=== PATIENT | male | born 1970 | race Caucasian/White ===

== ENCOUNTER 2020-06-07 08:07 | Emergency (ER) | payer MEDICARE, MEDICAID ==
[2020-06-07] MEDS ORDERED: Fluorescein 1 MG Ophth Strip EYELF ONE (08:19)
[2020-06-07] MEDS ORDERED: Proparacaine 0.5% Ophth Soln 15 ML Bottle EYELF ONE (08:19)
[2020-06-07] MEDS ORDERED: Tetracaine HCl/PF 0.5% 4 ML Bottle EYELF ONE (08:22)
[2020-06-07 08:36] VITALS: BP 134/92; PULSE 110
[2020-06-07] MEDS ORDERED: Take Home: Diclofenac Sodium 0.1% Ophth Soln 5 ML, 1 Bottle Pack EYELF SCH (08:45)
[2020-06-07] MEDS ORDERED: Take Home: Gentamicin 0.3% Ophth Soln 5 ML, 1 Bottle Pack ONE (08:54)
[2020-06-07] MEDS ORDERED: Take Home: Gentamicin 0.3% Ophth Soln 5 ML, 1 Bottle Pack EYELF SCH (12:00)
--- NOTE | 2020-06-15 05:31 | EDM.PDOC ---
ED HPI GENERAL MEDICAL PROBLEM - General Chief Complaint: Eye Problems Stated Complaint: SOMETHING IN L EYE Time Seen by Provider: 06/07/20 08:29 Source of Information: Reports: Patient - History of Present Illness INITIAL COMMENTS - FREE TEXT/NARRATIVE: Pt. presents to ER with complaints of L eye pain. He states that he woke with the discomfort early this AM. He states that he has difficulty opening it up. Denies any acute vision loss or change. Pt. states that he has not been grinding metal or doing other activities that would increase his risk of eye injury/foreign body. Location: Reports: Face Quality: Reports: Burning Severity: Moderate Left Eye Pain Score (Numeric/FACES): 5 - Related Data Allergies Allergy/AdvReac Type Severity Reaction Status Date / Time No Known Allergies Allergy Verified 06/07/20 09:35 Home Meds: Home Meds Aspirin [Halfprin] 81 mg PO DAILY 06/07/20 [History] Baclofen 20 mg PO TID 06/07/20 [History] Cholecalciferol (Vitamin D3) [Vitamin D3] 6,000 unit PO DAILY 06/07/20 [History] DULoxetine [Cymbalta] 60 mg PO BEDTIME 06/07/20 [History] Fluticasone Propionate [Flonase] 2 spray NS DAILY 06/07/20 [History] Gabapentin [Neurontin] 800 mg PO TID 06/07/20 [History] HYDROcodone/Ibuprofen [Vicoprofen] 1 tab PO TID 06/07/20 [History] Milnacipran HCl [Savella] 50 mg PO BID 06/07/20 [History] Naproxen 500 mg PO BID 06/07/20 [History] Nortriptyline 10 mg PO BEDTIME 06/07/20 [History] Omeprazole Magnesium [Prilosec Otc] 20 mg PO DAILY PRN 06/07/20 [History] Sildenafil [Viagra] 50 - 100 mg PO ASDIRECTED PRN 06/07/20 [History] SitaGLIPtin [Januvia] 100 mg PO DAILY 06/07/20 [History] Triamterene/Hydrochlorothiazid [Dyazide 37.5-25 Capsule] 1 each PO DAILY 06/07/20 [History] atenoloL [Atenolol] 50 mg PO DAILY 06/07/20 [History] atorvaSTATin [Lipitor] 20 mg PO DAILY 06/07/20 [History] glipiZIDE [Glipizide Xl] 10 mg PO DAILY 06/07/20 [History] lisinopriL [Lisinopril] 20 mg PO BID 06/07/20 [History] metFORMIN HCl [Metformin HCl] 1 tab PO BID 06/07/20 [History] Past Medical History Cardiovascular History: Reports: Hypertension Respiratory History: Reports: Sleep Apnea Gastrointestinal History: Reports: GERD Genitourinary History: Reports: Other (See Below) Other Genitourinary History: Erectile dysfunction, nephrolithiasis Other Musculoskeletal History: disk disease Neurological History: Reports: Migraines Psychiatric History: Reports: Other (See Below) Other Psychiatric History: insomnia Endocrine/Metabolic History: Reports: Diabetes, Type II, Vitamin D Deficiency, Other (See Below) Other Endocrine/Metabolic History: hyperlipidemia - Past Surgical History Other Musculoskeletal Surgeries/Procedures:: back surgery Social & Family History - Family History Family Medical History: Noncontributory - Tobacco Use Tobacco Use Status *Q: Never Tobacco User Second Hand Smoke Exposure: No - Caffeine Use Caffeine Use: Reports: None - Recreational Drug Use Recreational Drug Use: No ED ROS GENERAL - Review of Systems Review Of Systems: See Below Constitutional: Reports: No Symptoms HEENT: Reports: Eye Pain ED EXAM, GENERAL - Physical Exam Exam: See Below Exam Limited By: No Limitations General Appearance: Alert, WD/WN, No Apparent Distress Eye Exam: Left Eye: Corneal Abrasion (found under flourescein exam in L eye at L lateral lower quadrant of eye. No foreign body noted to eye or underside of eyelid.), Bilateral Eye: EOMI, Normal Fundi, Normal Inspection, PERRL Course - Vital Signs Last Recorded V/S: Last Vital Signs Temp 36.2 C 06/07/20 08:29 Pulse 110 H 06/07/20 08:29 Resp 18 06/07/20 08:29 BP 134/92 H 06/07/20 08:29 Pulse Ox 99 06/07/20 08:29 - Orders/Labs/Meds Meds: Medications Discontinued Medications Generic Name Dose Route Start Last Admin Trade Name Freq PRN Reason Stop Dose Admin Diclofenac Sodium 1 packet 06/07/20 08:45 06/07/20 08:47 Take Home: Diclofenac 0.1% Ophth, 1 Bottle EYELF 1 packet ONETIME MICH Administration Fluorescein Sodium 1 mg 06/07/20 08:19 06/07/20 08:27 Ful-Alena EYELF 06/07/20 08:20 1 mg ONETIME ONE Administration Gentamicin Sulfate 1 packet 06/07/20 12:00 06/07/20 08:48 Take Home: Gentamicin 0.3% Ophth Soln, 1 Alina EYELF Not Given QID MICH Gentamicin Sulfate Confirm 06/07/20 08:54 06/07/20 08:49 Take Home: Gentamicin 0.3% Ophth Soln, 1 Alina Administered 06/07/20 08:55 Not Given Dose 1 packet .ROUTE .STK-MED ONE Proparacaine HCl 1 ml 06/07/20 08:19 06/07/20 08:28 Proparacaine 0.5% Ophth Soln EYELF 06/07/20 08:20 Not Given ONETIME ONE Tetracaine HCl 1 ml 06/07/20 08:22 06/07/20 08:27 Tetracaine 0.5% Steri-Unit Mary Jane EYELF 06/07/20 08:23 1 drop ONETIME ONE Administration Departure - Departure Time of Disposition: 09:30 Disposition: Home, Self-Care 01 Clinical Impression: Corneal abrasion - Discharge Information Instructions: Corneal Abrasion, [id number], Gentamicin eye drops, Diclofenac eye solution Referrals: Dulce Luis PA-C [Primary Care Provider] - Forms: ED Department Discharge Additional Instructions: Gentamycin drops 1 drop to left eye 4 times daily for 7 days Voltaren (diclofenac) drops 1 drop 3 times daily for pain Follow-up with [facility] tomorrow for slit lamp examination of the eye Return to ER if you have any acute vision loss or change. Rest eye as much as possible today. Minimize likelihood of further injury to the eye. Rest with the eye closed. Sepsis Event Note (ED) - Evaluation Sepsis Screening Result: No Definite Risk - Assessment/Plan Plan: Gentamycin drops 1 drop to left eye 4 times daily for 7 days Voltaren (diclofenac) drops 1 drop 3 times daily for pain Follow-up with [facility] tomorrow for slit lamp examination of the eye Return to ER if you have any acute vision loss or change. Rest eye as much as possible today. Minimize likelihood of further injury to the eye. Rest with the eye closed.
== END 2020-06-07 08:54 | disposition home or self-care (01) ==
LOC: VM.ED 08:07
DX: S05.02XA Injury of conjunctiva and corneal abrasion without foreign body, left eye, initial encounter (principal); I10 Essential (primary) hypertension; E78.5 Hyperlipidemia, unspecified; E11.9 Type 2 diabetes mellitus without complications; G43.909 Migraine, unspecified, not intractable, without status migrainosus; K21.9 Gastro-esophageal reflux disease without esophagitis; Z79.899 Other long term (current) drug therapy; Z79.84 Long term (current) use of oral hypoglycemic drugs; Z79.82 Long term (current) use of aspirin
CPT/HCPCS: 99283; A9270-GY

== ENCOUNTER 2020-08-20 17:04 | Inpatient (IN) | payer MEDICARE, SELFPAY ==
[2020-08-20] MEDS ORDERED: Glucagon,Human Recombinant 1 MG Vial IM PRN (17:48)
[2020-08-20] MEDS ORDERED: 50% Dextrose in Water 50 ML Syringe IV PRN (17:48)
--- NOTE | 2020-08-20 18:02 | PCM.HP.2 ---
H&P History of Present Illness - General Date of Service: 08/20/20 Admit Problem/Dx: Admission Diagnosis/Problem Admission Diagnosis/Problem Acute kidney injury Source of Information: Patient History Limitations: Reports: No Limitations - History of Present Illness Initial Comments - Free Text/Narative: Romie presented to the clinic today with lightheadedness and seeing stars. He has felt weak, thinking his blood pressure is low. He did have a fainting episode Springer tad. On that day we had decreased his Lisinopril dose from 40 mg per day to 30 mg per day. His lab studies on 07/30/20 did show a decline in kidney function with Creat 1.45, BUN 32, and GFR 52. I had instructed him to stop Naprosyn he had been given from Podiatry for foot pain and to repeat BMP in a w [place]. He did not see this message so medication was not stopped and lab not done. He denies black, bloody or tarry stools. He also has numbness over his inner wrists with zingers from his wrists to his fingers. His arms have been twitching. He has pain and numbness to his shoulders. Today lab returned with Creat 2.3, BUN 38, GFR 31, Hemoglobin 9.9, Hct 29.3, MCV 94, MCHC 33. - Related Data Allergies/Adverse Reactions: Allergies Allergy/AdvReac Type Severity Reaction Status Date / Time No Known Allergies Allergy Verified 06/07/20 09:35 Home Medications: Home Meds Aspirin [Halfprin] 81 mg PO DAILY 06/07/20 [History] Baclofen 20 mg PO TID 06/07/20 [History] Cholecalciferol (Vitamin D3) [Vitamin D3] 6,000 unit PO DAILY 06/07/20 [History] DULoxetine [Cymbalta] 60 mg PO BEDTIME 06/07/20 [History] Fluticasone Propionate [Flonase] 2 spray NS DAILY 06/07/20 [History] Gabapentin [Neurontin] 800 mg PO TID 06/07/20 [History] HYDROcodone/Ibuprofen [Vicoprofen] 1 tab PO TID 06/07/20 [History] Milnacipran HCl [Savella] 50 mg PO BID 06/07/20 [History] Naproxen 500 mg PO BID 06/07/20 [History] Nortriptyline 10 mg PO BEDTIME 06/07/20 [History] Omeprazole Magnesium [Prilosec Otc] 20 mg PO DAILY PRN 06/07/20 [History] Sildenafil [Viagra] 50 - 100 mg PO ASDIRECTED PRN 06/07/20 [History] SitaGLIPtin [Januvia] 100 mg PO DAILY 06/07/20 [History] Triamterene/Hydrochlorothiazid [Dyazide 37.5-25 Capsule] 1 each PO DAILY 06/07/20 [History] atenoloL [Atenolol] 50 mg PO DAILY 06/07/20 [History] atorvaSTATin [Lipitor] 20 mg PO DAILY 06/07/20 [History] glipiZIDE [Glipizide Xl] 10 mg PO DAILY 06/07/20 [History] lisinopriL [Lisinopril] 20 mg PO BID 06/07/20 [History] metFORMIN HCl [Metformin HCl] 1 tab PO BID 06/07/20 [History] Past Medical History Cardiovascular History: Reports: Hypertension Respiratory History: Reports: Sleep Apnea Gastrointestinal History: Reports: GERD Genitourinary History: Reports: Other (See Below) Other Genitourinary History: Erectile dysfunction, nephrolithiasis Musculoskeletal History: Reports: Back Pain, Chronic, Fibromyalgia, Neck Pain, Chronic Other Musculoskeletal History: disk disease Neurological History: Reports: Migraines Psychiatric History: Reports: Other (See Below) Other Psychiatric History: insomnia Endocrine/Metabolic History: Reports: Diabetes, Type II, Vitamin D Deficiency, Other (See Below) Other Endocrine/Metabolic History: hyperlipidemia - Past Surgical History GI Surgical History: Reports: Cholecystectomy Male Surgical History: Reports: Other (See Below) Other Male Surgeries/Procedures: groin mass Neurological Surgical History: Reports: Spinal Fusion (C6-7 fusion, S1-2 fusion, neurostimulator placement) Musculoskeletal Surgical History: Reports: Other (See Below) Other Musculoskeletal Surgeries/Procedures:: back surgery Social & Family History - Family History Family Medical History: No Pertinent Family History - Tobacco Use Tobacco Use Status *Q: Current Every Day Tobacco User Tobacco Use Within Last Twelve Months: Snuff/Dip - Caffeine Use Caffeine Use: Reports: None - Alcohol Use Alcohol Use History: No - Recreational Drug Use Recreational Drug Use: No - Living Situation & Occupation Living situation: Reports: with Spouse Occupation: Disabled H&P Review of Systems - Review of Systems: Review Of Systems: See Below General: Reports: Fatigue Cardiovascular: Reports: Lightheadedness, Syncope Gastrointestinal: Reports: No Symptoms Musculoskeletal: Reports: Neck Pain, Shoulder Pain, Arm Pain, Back Pain, Hand Pain, Joint Pain, Muscle Pain, Muscle Stiffness Neurological: Reports: Syncope, Weakness, Gait Disturbance Exam - Exam Exam: See Below - Exam General: Alert, Oriented, Cooperative Lungs: Clear to Auscultation, Normal Respiratory Effort Cardiovascular: Regular Rate, Regular Rhythm GI/Abdominal Exam: Normal Bowel Sounds, Soft, Non-Tender Skin: Warm, Dry, Intact Neuro Extensive - Mental Status: Alert, Oriented x3, Normal Mood/Affect, Normal Cognition, Memory Intact Neuro Extensive - Motor, Sensory, Reflexes: Abnormal Gait Psychiatric: Alert, Normal Affect, Normal Mood - Patient Data Lab Results Last 24 hrs: Laboratory Results - last 24 hr 08/20/20 Range/Units 17:20 SARS CoV-2 RNA Rapid URBANO Negative (NEGATIVE) *Q Meaningful Use (ADM) - VTE *Q VTE Anticoagulation Contraindications: Med/TX Not Indicated/Need - Problem List (1) Acute kidney injury SNOMED Code(s): 69418080, 86151646 ICD Code: N17.9 - ACUTE KIDNEY FAILURE, UNSPECIFIED Status: Acute (2) Anemia SNOMED Code(s): 801436504 ICD Code: D64.9 - ANEMIA, UNSPECIFIED Status: Acute Qualifiers: Anemia type: unspecified type Qualified Code(s): D64.9 - Anemia, unspecified (3) Essential hypertension SNOMED Code(s): 99165111 ICD Code: I10 - ESSENTIAL (PRIMARY) HYPERTENSION Status: Chronic (4) Diabetes type 2, controlled SNOMED Code(s): 73788285, 890540175 ICD Code: E11.9 - TYPE 2 DIABETES MELLITUS WITHOUT COMPLICATIONS Status: Chronic Qualifiers: 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 home use Diabetes mellitus complication status: without complication Qualified Code(s): E11.9 - Type 2 diabetes mellitus without complications (5) Chronic back pain SNOMED Code(s): 468390656 ICD Code: M54.9 - DORSALGIA, UNSPECIFIED; G89.29 - OTHER CHRONIC PAIN Status: Chronic Qualifiers: Back pain location: back pain in unspecified location Back pain laterality: unspecified Qualified Code(s): M54.9 - Dorsalgia, unspecified; G89.29 - Other chronic pain (6) Fibromyalgia SNOMED Code(s): 002331909 ICD Code: M79.7 - FIBROMYALGIA Status: Chronic (7) GERD (gastroesophageal reflux disease) SNOMED Code(s): 993842872 ICD Code: K21.9 - GASTRO-ESOPHAGEAL REFLUX DISEASE WITHOUT ESOPHAGITIS Status: Chronic Qualifiers: Esophagitis presence: esophagitis presence not specified Qualified Code(s): K21.9 - Gastro-esophageal reflux disease without esophagitis (8) Insomnia SNOMED Code(s): 746032140 ICD Code: G47.00 - INSOMNIA, UNSPECIFIED Status: Chronic Qualifiers: Insomnia type: due to medical condition Qualified Code(s): G47.01 - Insomnia due to medical condition Problem List Initiated/Reviewed/Updated: Yes Orders Last 24hrs: Active Orders 24 hr Category Date Time Status Patient Status [ADT] Routine ADT 08/20/20 17:30 Ordered Blood Glucose Check, Bedside [RC] QIDACANDBED Care 08/20/20 17:22 Active Fecal Occult Bld Diag Imm [RC] ASDIRECTED Care 08/20/20 17:38 Ordered Notify Provider Vital Signs [RC] ASDIRECTED Care 08/20/20 17:34 Ordered Oxygen Therapy [RC] PRN Care 08/20/20 17:30 Ordered Up With Assistance [RC] ASDIRECTED Care 08/20/20 17:30 Ordered VTE/DVT Education [RC] PER UNIT ROUTINE Care 08/20/20 17:30 Ordered Vital Signs [RC] Q4H Care 08/20/20 17:30 Ordered Regular Diet [DIET] Diet 08/20/20 Dinner Ordered BASIC METABOLIC PANEL,BMP [CHEM] AM Lab 08/21/20 05:11 Ordered CBC WITH AUTO DIFF [HEME] AM Lab 08/21/20 05:11 Ordered Acetaminophen/HYDROcodone [Chauncey 325-5 MG] Med 08/20/20 17:52 Ordered 1.5 tab PO TID PRN Baclofen [Baclofen] Med 08/20/20 20:00 Ordered 20 mg PO TID DULoxetine [Cymbalta] Med 08/20/20 20:00 Ordered 60 mg PO BEDTIME Dextrose 50% in Water Med 08/20/20 17:48 Ordered 50 ml IV ASDIRECTED PRN Gabapentin Med 08/20/20 20:00 Ordered 800 mg PO BEDTIME Glucagon,Human Recombinant [GlucaGen] Med 08/20/20 17:48 Ordered 1 mg IM ASDIRECTED PRN Insulin Lispro [HumaLOG] Med 08/20/20 18:00 Ordered See Protocol SUBCUT TIDMEALS Milnacipran HCl [Savella] Med 08/20/20 20:00 Ordered 50 mg PO BID Nortriptyline Med 08/20/20 20:00 Ordered 10 mg PO BEDTIME Omeprazole Magnesium [Prilosec Otc] Med 08/21/20 08:00 Ordered 40 mg PO DAILY Sodium Chloride 0.9% @ 100 MLS/HR(1000ml) Med 08/20/20 17:45 Ordered Sodium Chloride 0.9% [Normal Saline] 1,000 ml IV ASDIRECTED atenoloL [Tenormin] Med 08/21/20 08:00 Ordered 50 mg PO DAILY atorvaSTATin [Lipitor] Med 08/21/20 08:00 Ordered 20 mg PO DAILY Anticoagulation Contraindications VTE [AST] Per Unit Oth 08/20/20 17:30 Ordered Routine Resuscitation Status Routine Resus Stat 08/20/20 17:30 Ordered Medication Orders Atenolol (Tenormin) 50 mg PO DAILY MICH Duloxetine HCl (Cymbalta) 60 mg PO BEDTIME MICH Sodium Chloride (Normal Saline) 1,000 mls @ 100 mls/hr IV ASDIRECTED MICH Non-Formulary Medication (Gabapentin) 800 mg PO BEDTIME MICH Non-Formulary Medication (Atorvastatin [Lipitor]) 20 mg PO DAILY MICH Non-Formulary Medication (Baclofen [Baclofen]) 20 mg PO TID MICH Non-Formulary Medication (Milnacipran Hcl [Savella]) 50 mg PO BID MICH Non-Formulary Medication (Omeprazole Magnesium [Prilosec Otc]) 40 mg PO DAILY MICH Nortriptyline HCl (Nortriptyline) 10 mg PO BEDTIME MICH Assessment/Plan Comment:: 1) 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 Hold all antihypertensives except Atenolol. Hold NSAIDS. Gentle IV fluids. Recheck labs in morning. 2) Anemia- stool occult. Recheck hemoglobin in morning. Like due to GI bleed due to NSAID use. 3) HTN- Hold medications as above. Monitor vital signs per routine. 4) DM- Hold all oral meds. SSI. 5) Chronic Pain- Stop Vicoprofen, Aleve. Decrease Gabapentin dose. Continue other medications. Start Hydrocodone/ APAP instead. 6) Fibromyalgia- as above 7) Insomnia- as above 8) GERD- continue Omeprazole at increased dose at 40 mg. Code status is full. Diet is regular. No pharmacologic VTE prophylaxis due to acute anemia. Patient admitted to Acute Care as anticipated stay beyond 2 nights.
[2020-08-20] MEDS: Insulin Lispro 100 Units/ML 3 ML Vial SUBCUT SCH (18:32)
[2020-08-20] MEDS ORDERED: Gabapentin 400 MG Cap PO SCH (20:00)
[2020-08-20] MEDS: Sodium Chloride 0.9% 1,000 ML IV SCH (20:47)
[2020-08-20] MEDS: Baclofen 10 MG Tab PO SCH (20:48)
[2020-08-20] MEDS: Nortriptyline 10 MG Cap PO SCH (20:48)
[2020-08-20] MEDS: DULoxetine 60 MG Cap PO SCH (20:48)
[2020-08-21] MEDS: Omeprazole 20 MG Cap.CR PO SCH (06:10)
[2020-08-21] MEDS: Sodium Chloride 0.9% 1,000 ML IV SCH (06:11)
[2020-08-21 07:12] LABS: ANION GAP 10.4 mmol/L (5-15)
[2020-08-21] MEDS: atorvaSTATin 10 MG Tab PO SCH (08:00)
[2020-08-21] MEDS: Baclofen 10 MG Tab PO SCH ×3 (08:00→20:03)
[2020-08-21] MEDS: Atenolol 50 MG Tab PO SCH (08:02)
[2020-08-21] MEDS: Insulin Lispro 100 Units/ML 3 ML Vial SUBCUT SCH ×3 (08:03→18:03)
--- NOTE | 2020-08-21 08:41 | PCM.PN ---
- General Info Date of Service: 08/21/20 Subjective Update: 50 yo male hospital day #2 admitted with YANIQUE and anemia. Patient states he is feeling much better today. He has been up and around in his room without any lightheadedness or "seeing stars." He has been voiding without any issues. He denies any abdominal pain. He has not had a BM since admission but states this is not unusual for him. He denies any nausea or vomiting. Appetite is good. His pain has been well controlled on what he is on here. - Review of Systems General: Reports: No Symptoms HEENT: Reports: No Symptoms Pulmonary: Reports: No Symptoms Cardiovascular: Reports: No Symptoms Gastrointestinal: Reports: No Symptoms Genitourinary: Reports: No Symptoms Musculoskeletal: Reports: No Symptoms Skin: Reports: No Symptoms Neurological: Reports: No Symptoms Psychiatric: Reports: No Symptoms - Patient Data Vitals - Most Recent: Last Vital Signs Temp 36.3 C 08/21/20 06:00 Pulse 86 08/21/20 08:02 Resp 16 08/21/20 06:00 BP 114/70 08/21/20 08:02 Pulse Ox 98 08/21/20 06:00 Weight - Most Recent: 80.83 kg I&O - Last 24 Hours: Intake & Output 08/20/20 08/21/20 08/21/20 22:59 06:59 14:59 Intake Total 200 1270 240 Output Total 0 450 Balance 200 820 240 Lab Results Last 24 Hours: Laboratory Results - last 24 hr 08/20/20 08/20/20 08/20/20 Range/Units 17:20 18:32 20:52 WBC (4.0-10.0) x10^3/uL RBC (4.5-6.0) x10^6/uL Hgb (14.0-18.0) g/dL Hct (40.0-52.0) % MCV (78.0-93.0) fL MCH (26.0-32.0) pg MCHC (32.0-36.0) g/dL RDW Coeff of Martha (10.0-15.0) % Plt Count (130-400) x10^3/uL Neut % (Auto) (50.0-80.0) % Lymph % (Auto) (25.0-50.0) % Titus % (Auto) (2.0-11.0) % Eos % (Auto) (0.0-4.0) % Baso % (Auto) (0.2-1.2) % Sodium (136-145) mmol/L Potassium (3.5-5.1) mmol/L Chloride (98-107) mmol/L Carbon Dioxide (21-32) mmol/L Anion Gap (5-15) mmol/L BUN (7-18) mg/dL Creatinine (0.70-1.30) mg/dL Est Cr Clr Drug Dosing mL/min Estimated GFR (MDRD) Glucose (74-106) mg/dL POC Glucose 125 H 159 H (74-106) mg/dL Calcium (8.5-10.1) mg/dL SARS CoV-2 RNA Rapid URBANO Negative (NEGATIVE) 08/21/20 08/21/20 08/21/20 Range/Units 06:14 06:18 06:18 WBC 5.9 (4.0-10.0) x10^3/uL RBC 3.00 L (4.5-6.0) x10^6/uL Hgb 9.4 L D (14.0-18.0) g/dL Hct 28.3 L (40.0-52.0) % MCV 94.3 H D (78.0-93.0) fL MCH 31.3 (26.0-32.0) pg MCHC 33.2 (32.0-36.0) g/dL RDW Coeff of Martha 12.7 (10.0-15.0) % Plt Count 206 (130-400) x10^3/uL Neut % (Auto) 54.7 (50.0-80.0) % Lymph % (Auto) 30.0 (25.0-50.0) % Titus % (Auto) 9.5 (2.0-11.0) % Eos % (Auto) 5.5 H (0.0-4.0) % Baso % (Auto) 0.3 (0.2-1.2) % Sodium 145 (136-145) mmol/L Potassium 4.4 (3.5-5.1) mmol/L Chloride 108 H (98-107) mmol/L Carbon Dioxide 31 (21-32) mmol/L Anion Gap 10.4 (5-15) mmol/L BUN 32 H (7-18) mg/dL Creatinine 1.6 H (0.70-1.30) mg/dL Est Cr Clr Drug Dosing 60.14 mL/min Estimated GFR (MDRD) 46 Glucose 90 (74-106) mg/dL POC Glucose 86 (74-106) mg/dL Calcium 8.7 (8.5-10.1) mg/dL SARS CoV-2 RNA Rapid URBANO (NEGATIVE) Med Orders - Current: Current Medications Hydrocodone Bitart/Acetaminophen ([place] 325-5 Mg) 1.5 tab PO TID PRN PRN Reason: Pain Atenolol (Tenormin) 50 mg PO DAILY [facility] Last Admin: 08/21/20 08:02 Dose: 50 mg Documented by: Atorvastatin Calcium (Lipitor) 20 mg PO DAILY [facility] Last Admin: 08/21/20 08:00 Dose: 20 mg Documented by: Baclofen (Lioresal) 20 mg PO TID [facility] Last Admin: 08/21/20 08:00 Dose: 20 mg Documented by: Dextrose/Water (Dextrose 50% In Water) 50 ml IV ASDIRECTED PRN PRN Reason: Hypoglycemia Duloxetine HCl (Cymbalta) 60 mg PO BEDTIME [facility] Last Admin: 08/20/20 20:48 Dose: 60 mg Documented by: Gabapentin (Neurontin) 800 mg PO TID [facility] Glucagon (Glucagen) 1 mg IM ASDIRECTED PRN PRN Reason: Hypoglycemia Sodium Chloride (Normal Saline) 1,000 mls @ 100 mls/hr IV ASDIRECTED [facility] Last Admin: 08/21/20 06:11 Dose: 100 mls/hr Documented by: Insulin Human Lispro (Humalog) 0 unit SUBCUT TIDMEALS [facility]; Protocol Last Admin: 08/21/20 08:03 Dose: Not Given Documented by: Non-Formulary Medication (Milnacipran Hcl [Savella]) 50 mg PO BID [facility] Nortriptyline HCl (Nortriptyline) 10 mg PO BEDTIME [facility] Last Admin: 08/20/20 20:48 Dose: 10 mg Documented by: Omeprazole (Omeprazole) 40 mg PO DAILY@0700 [facility] Last Admin: 08/21/20 06:10 Dose: 40 mg Documented by: Discontinued Medications Gabapentin (Neurontin) 800 mg PO BEDTIME [facility] Last Admin: 08/20/20 20:48 Dose: 800 mg Documented by: - Exam General: Alert, Oriented, Cooperative, No Acute Distress HEENT: Mucous Membr. Moist/[place] Neck: Supple, Trachea Midline, No Thyromegaly Lungs: Clear to Auscultation, Normal Respiratory Effort Cardiovascular: Regular Rate, Regular Rhythm, No Murmurs GI/Abdominal Exam: Normal Bowel Sounds, Soft, Non-Tender, No Organomegaly, No Distention, No Mass Extremities: Normal Inspection, Normal Range of Motion, Non-Tender, No Pedal Edema Peripheral Pulses: 2+: Radial (L), Radial (R) Skin: Warm, Dry, Intact Neurological: No New Focal Deficit Sepsis Event Note - Evaluation Sepsis Screening Result: No Definite Risk - Focused Exam Vital Signs: Vital Signs Temp Pulse Pulse Resp BP BP Pulse Ox 08/21/20 08:02 86 114/70 08/21/20 06:00 36.3 C 73 16 98/59 L 98 08/21/20 02:00 36.7 C 81 17 92/53 L 98 08/20/20 22:00 36.4 C 68 16 96/50 L 98 - Problem List & Annotations (1) Acute kidney injury SNOMED Code(s): 39117552, 73717293 Code(s): N17.9 - ACUTE KIDNEY FAILURE, UNSPECIFIED Status: Acute Current Visit: Yes (2) Anemia SNOMED Code(s): 752729036 Code(s): D64.9 - ANEMIA, UNSPECIFIED Status: Acute Current Visit: Yes Qualifiers: Anemia type: unspecified type Qualified Code(s): D64.9 - Anemia, unspecified (3) Chronic back pain SNOMED Code(s): 951249569 Code(s): M54.9 - DORSALGIA, UNSPECIFIED; G89.29 - OTHER CHRONIC PAIN Status: Chronic Current Visit: Yes Qualifiers: Back pain location: back pain in unspecified location Back pain laterality: unspecified Qualified Code(s): M54.9 - Dorsalgia, unspecified; G89.29 - Other chronic pain (4) Diabetes type 2, controlled SNOMED Code(s): 41043563, 833230807 Code(s): E11.9 - TYPE 2 DIABETES MELLITUS WITHOUT COMPLICATIONS Status: Chronic Current Visit: Yes Qualifiers: Diabetes mellitus intermediate designer insulin use: without intermediate designer use Diabetes mellitus complication status: without complication Qualified Code(s): E11.9 - Type 2 diabetes mellitus without complications (5) Essential hypertension SNOMED Code(s): 86628882 Code(s): I10 - ESSENTIAL (PRIMARY) HYPERTENSION Status: Chronic Current Visit: Yes (6) Fibromyalgia SNOMED Code(s): 378762674 Code(s): M79.7 - FIBROMYALGIA Status: Chronic Current Visit: Yes (7) GERD (gastroesophageal reflux disease) SNOMED Code(s): 518718168 Code(s): K21.9 - GASTRO-ESOPHAGEAL REFLUX DISEASE WITHOUT ESOPHAGITIS Status: Chronic Current Visit: Yes Qualifiers: Esophagitis presence: esophagitis presence not specified Qualified Code(s): K21.9 - Gastro-esophageal reflux disease without esophagitis (8) Insomnia SNOMED Code(s): 730652195 Code(s): G47.00 - INSOMNIA, UNSPECIFIED Status: Chronic Current Visit: Yes Qualifiers: Insomnia type: due to medical condition Qualified Code(s): G47.01 - Insomnia due to medical condition - Problem List Review Problem List Initiated/Reviewed/Updated: Yes - My Orders Last 24 Hours: My Active Orders 08/20/20 17:22 Blood Glucose Check, Bedside [RC] 07,11,17,20 08/21/20 08:30 Gabapentin [Neurontin] 800 mg PO TID 08/22/20 05:11 BASIC METABOLIC PANEL,BMP [CHEM] Routine CBC WITH AUTO DIFF [HEME] Routine - Assessment Assessment:: 50 yo male hospital day #2 admitted with YANIQUE and anemia. He is feeling much better today. Hgb stable. 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 - Plan Plan:: #1 YANIQUE - Likely secondary to polypharmacy (more than 1 NSAID + lisinopril). - Creatinine is improved today to 1.6 from 2.3 on admission. - Will finish the IV fluid bag currently hanging and then D/C. - He can eat/drink ad yoselyn. - Holding all antihypertensives except Atenolol. NSAIDS have also been d/c'd. - Recheck labs in morning. #2 Anemia #3 GERD - Presumed secondary to gastritis vs PUD from NSAID use. - Stool occult to be collected when he has a BM. - Hgb is stable today; therefore, he is not likely to be actively bleeding. - Since this is a normocytic anemia, will clarify with iron studies, B12, and folate. - Continue higher dose omeprazole. - Recheck CBC in am. #4 HTN - BP's have been stable off many medications. - Will continue atenolol only for now. - If anything needs to be added, would add back his diuretics prior to the lisinopril. #5 DM - Oral medications held in like of YANIQUE and hospitalization. - QID glucose checks have been acceptable. - Low dose SSI. #6 Chronic Pain #7 Fibromyalgia - Vicoprofen and aleve d/c'd. - Doing well on replacement of norco. This will likely be continued at d/c. - Per CrCl, gabapentin dose can be increased back to TID. - Continue other home medications as ordered. #8 Insomnia - Continue home medications. Patient will remain on acute today given creatinine still double is baseline - anticipate d/c home tomorrow barring any complications. He will have multiple medication adjustments prior to d/c. Code status is full. Holding off on pharmacologic VTE prophylaxis in light of significant anemia, ability of patient to ambulate regularly, and anticipation that his hospitalization will be <48 hours (but still spanning 2 midnights).
[2020-08-21] MEDS: Gabapentin 400 MG Cap PO SCH ×3 (09:16→19:59)
[2020-08-21] MEDS: Acetaminophen/HYDROcodone 325-5 MG Tab PO PRN ×2 (11:56→18:05)
[2020-08-21] MEDS: SAVELLA 50 MG PO SCH ×3 (13:47→20:04)
[2020-08-21] MEDS: Nortriptyline 10 MG Cap PO SCH (19:59)
[2020-08-21] MEDS: DULoxetine 60 MG Cap PO SCH (20:00)
[2020-08-22] MEDS: Omeprazole 20 MG Cap.CR PO SCH (06:58)
[2020-08-22] MEDS: atorvaSTATin 10 MG Tab PO SCH (07:47)
[2020-08-22] MEDS: Gabapentin 400 MG Cap PO SCH (07:47)
[2020-08-22] MEDS: Baclofen 10 MG Tab PO SCH (07:48)
[2020-08-22] MEDS: Atenolol 50 MG Tab PO SCH (07:48)
[2020-08-22] MEDS: SAVELLA 50 MG PO SCH (07:50)
[2020-08-22 08:19] LABS: ANION GAP 11.2 mmol/L (5-15)
--- NOTE | 2020-08-22 09:23 | PCM.DCSUM1 ---
Discharge Summary - Hospital Course Brief History: Mr. Rangel is a 50 yo male who was admitted with YANIQUE and acute anemia after presenting to clinic for evaluation of lightheadedness and generalized weakness. - Discharge Data Discharge Date: 08/22/20 Discharge Disposition: Home, Self-Care 01 Condition: Good - Referral to Home Health Primary Care Physician: Dulce Luis PA-C - Discharge Diagnosis/Problem(s) (1) Acute kidney injury SNOMED Code(s): 08205085, 81641895 ICD Code: N17.9 - ACUTE KIDNEY FAILURE, UNSPECIFIED Status: Acute Current Visit: Yes (2) Anemia SNOMED Code(s): 283313466 ICD Code: D64.9 - ANEMIA, UNSPECIFIED Status: Acute Current Visit: Yes Qualifiers: Anemia type: unspecified type Qualified Code(s): D64.9 - Anemia, unspecified (3) Chronic back pain SNOMED Code(s): 405007184 ICD Code: M54.9 - DORSALGIA, UNSPECIFIED; G89.29 - OTHER CHRONIC PAIN Status: Chronic Current Visit: Yes Qualifiers: Back pain location: back pain in unspecified location Back pain laterality: unspecified Qualified Code(s): M54.9 - Dorsalgia, unspecified; G89.29 - Other chronic pain (4) Diabetes type 2, controlled SNOMED Code(s): 94408749, 545507490 ICD Code: E11.9 - TYPE 2 DIABETES MELLITUS WITHOUT COMPLICATIONS Status: Chronic Current Visit: Yes Qualifiers: Diabetes mellitus watermelon inspector insulin use: without [facility] use Diabetes mellitus complication status: without complication Qualified Code(s): E11.9 - Type 2 diabetes mellitus without complications (5) Essential hypertension SNOMED Code(s): 78519942 ICD Code: I10 - ESSENTIAL (PRIMARY) HYPERTENSION Status: Chronic Current Visit: Yes (6) Fibromyalgia SNOMED Code(s): 099406411 ICD Code: M79.7 - FIBROMYALGIA Status: Chronic Current Visit: Yes (7) GERD (gastroesophageal reflux disease) SNOMED Code(s): 138003210 ICD Code: K21.9 - GASTRO-ESOPHAGEAL REFLUX DISEASE WITHOUT ESOPHAGITIS Status: Chronic Current Visit: Yes Qualifiers: Esophagitis presence: esophagitis presence not specified Qualified Code(s): K21.9 - Gastro-esophageal reflux disease without esophagitis (8) Insomnia SNOMED Code(s): 950620407 ICD Code: G47.00 - INSOMNIA, UNSPECIFIED Status: Chronic Current Visit: Yes Qualifiers: Insomnia type: due to medical condition Qualified Code(s): G47.01 - Insomnia due to medical condition - Patient Summary/Data Operative Procedure(s) Performed: none Complications: none Consults: none Labs Pending at D/C: vitamin B12, folate Recommended Follow-up Testing/Procedures: CBC, BMP Planned Operative Procedure(s) after DC: none Hospital Course: Mr. Rangel was admitted and started on IV fluids. He had multiple medication adjustments due to renal function and anemia. His creatinine improved and he was able to eat and drink without any issues. Therefore, his IV fluids were discontinued late in the day hospital day #2. His hemoglobin remained stable during his hospitalization. Iron studies were normal. Vitamin B12 and folate levels were obtained and are pending at the time of discharge. It is felt the anemia is likely related to a GI bleed from NSAID use. A stool occult blood was not able to be obtained as the patient did not have a BM during his hospitalization. This is not unusual for him. He is having no abdominal pain, nausea, or vomiting. Consideration should be given to check a stool for occult blood and at least consider EGD, colonoscopy depending on the timing of previous evaluations. His blood pressure remained stable on atenolol only. His glucoses were controlled without insulin. He will discharge home today with multiple medication changes. As a result, it is recommended he follow-up with his PCP for lab and a visit later this coming week. If his blood pressure needs something else for control, would add back lisinopril first given diagnosis of diabetes and the fact that this should be fine given that his NSAID's are now discontinued. - Patient Instructions Diet: Usual Diet as Tolerated Activity: As Tolerated Driving: May Drive Today Showering/Bathing: May Shower Notify Provider of: Fever, Increased Pain, Swelling and Redness, Drainage, Nausea and/or Vomiting - Discharge Plan *PRESCRIPTION DRUG MONITORING PROGRAM REVIEWED*: No *COPY OF PRESCRIPTION DRUG MONITORING REPORT IN PATIENT VU: No Home Medications: Home Meds Aspirin [Halfprin] 81 mg PO DAILY 06/07/20 [History] Baclofen 20 mg PO TID 06/07/20 [History] Cholecalciferol (Vitamin D3) [Vitamin D3] 6,000 unit PO DAILY 06/07/20 [History] DULoxetine [Cymbalta] 120 mg PO BEDTIME 06/07/20 [History] Fluticasone Propionate [Flonase] 2 spray NS DAILY 06/07/20 [History] Gabapentin [Neurontin] 800 mg PO TID 06/07/20 [History] Milnacipran HCl [Savella] 50 mg PO BID 06/07/20 [History] Nortriptyline 10 mg PO BEDTIME 06/07/20 [History] Omeprazole Magnesium [Prilosec Otc] 20 mg PO DAILY PRN 06/07/20 [History] Sildenafil [Viagra] 50 - 100 mg PO ASDIRECTED PRN 06/07/20 [History] SitaGLIPtin [Januvia] 100 mg PO DAILY 06/07/20 [History] atenoloL [Atenolol] 50 mg PO DAILY 06/07/20 [History] atorvaSTATin [Lipitor] 20 mg PO DAILY 06/07/20 [History] glipiZIDE [Glipizide Xl] 10 mg PO DAILY 06/07/20 [History] metFORMIN HCl [Metformin HCl] 1 tab PO BID 06/07/20 [History] Acetaminophen/HYDROcodone [[place] 325-5 MG] 1.5 tab PO TID PRN tablet 08/22/20 [Rx] - Discharge Summary/Plan Comment DC Time >30 min.: No - General Info Date of Service: 08/22/20 Subjective Update: Patient is feeling well today and is eager for d/c home. He denies complaints. - Review of Systems General: Reports: No Symptoms HEENT: Reports: No Symptoms Pulmonary: Reports: No Symptoms Cardiovascular: Reports: No Symptoms Gastrointestinal: Reports: No Symptoms Genitourinary: Reports: No Symptoms Musculoskeletal: Reports: No Symptoms Skin: Reports: No Symptoms Neurological: Reports: No Symptoms Psychiatric: Reports: No Symptoms - Patient Data Vitals - Most Recent: Last Vital Signs Temp 36.4 C 08/22/20 05:28 Pulse 89 08/22/20 07:48 Resp 16 08/22/20 05:28 BP 112/62 08/22/20 07:48 Pulse Ox 98 08/22/20 05:28 Weight - Most Recent: 81.465 kg I&O - Last 24 hours: Intake & Output 01/08/22/20 08/22/20 22:59 06:59 14:59 Intake Total 1120 160 240 Balance 1120 160 240 Lab Results - Last 24 hrs: Laboratory Results - last 24 hr 08/21/20 08/22/20 08/22/20 Range/Units 11:39 07:30 07:30 WBC 6.6 (4.0-10.0) x10^3/uL RBC 2.96 L (4.5-6.0) x10^6/uL Hgb 9.2 L (14.0-18.0) g/dL Hct 27.8 L (40.0-52.0) % MCV 93.9 H (78.0-93.0) fL MCH 31.1 (26.0-32.0) pg MCHC 33.1 (32.0-36.0) g/dL RDW Coeff of Martha 12.6 (10.0-15.0) % Plt Count 201 (130-400) x10^3/uL Neut % (Auto) 69.8 (50.0-80.0) % Lymph % (Auto) 18.4 L (25.0-50.0) % Spencer % (Auto) 8.4 (2.0-11.0) % Eos % (Auto) 3.2 (0.0-4.0) % Baso % (Auto) 0.2 (0.2-1.2) % Sodium 144 (136-145) mmol/L Potassium 4.2 (3.5-5.1) mmol/L Chloride 108 H (98-107) mmol/L Carbon Dioxide 29 (21-32) mmol/L Anion Gap 11.2 (5-15) mmol/L BUN 25 H (7-18) mg/dL Creatinine 1.3 (0.70-1.30) mg/dL Est Cr Clr Drug Dosing 74.01 mL/min Estimated GFR (MDRD) 59 Glucose 136 H (74-106) mg/dL POC Glucose 148 H (74-106) mg/dL Calcium 8.6 (8.5-10.1) mg/dL Iron (65-175) ug/dL TIBC (250-450) ug/dL % Saturation (20.0-50.0) % Ferritin (26-388) ng/mL 08/22/20 Range/Units 07:30 WBC (4.0-10.0) x10^3/uL RBC (4.5-6.0) x10^6/uL Hgb (14.0-18.0) g/dL Hct (40.0-52.0) % MCV (78.0-93.0) fL MCH (26.0-32.0) pg MCHC (32.0-36.0) g/dL RDW Coeff of Martha (10.0-15.0) % Plt Count (130-400) x10^3/uL Neut % (Auto) (50.0-80.0) % Lymph % (Auto) (25.0-50.0) % [place] % (Auto) (2.0-11.0) % Eos % (Auto) (0.0-4.0) % Baso % (Auto) (0.2-1.2) % Sodium (136-145) mmol/L Potassium (3.5-5.1) mmol/L Chloride (98-107) mmol/L Carbon Dioxide (21-32) mmol/L Anion Gap (5-15) mmol/L BUN (7-18) mg/dL Creatinine (0.70-1.30) mg/dL Est Cr Clr Drug Dosing mL/min Estimated GFR (MDRD) Glucose (74-106) mg/dL POC Glucose (74-106) mg/dL Calcium (8.5-10.1) mg/dL Iron 122 (65-175) ug/dL TIBC 283 (250-450) ug/dL % Saturation 43.1 (20.0-50.0) % Ferritin 250 (26-388) ng/mL Med Orders - Current: Current Medications Hydrocodone Bitart/Acetaminophen ([place] 325-5 Mg) 1.5 tab PO TID PRN PRN Reason: Pain Last Admin: 08/21/20 18:05 Dose: 1.5 tab Documented by: Atenolol (Tenormin) 50 mg PO DAILY [facility] Last Admin: 08/22/20 07:48 Dose: 50 mg Documented by: Atorvastatin Calcium (Lipitor) 20 mg PO DAILY [facility] Last Admin: 08/22/20 07:47 Dose: 20 mg Documented by: Baclofen (Lioresal) 20 mg PO TID [facility] Last Admin: 08/22/20 07:48 Dose: 20 mg Documented by: Dextrose/Water (Dextrose 50% In Water) 50 ml IV ASDIRECTED PRN PRN Reason: Hypoglycemia Duloxetine HCl (Cymbalta) 60 mg PO BEDTIME [facility] Last Admin: 08/21/20 20:00 Dose: 60 mg Documented by: Gabapentin (Neurontin) 800 mg PO TID [facility] Last Admin: 08/22/20 07:47 Dose: 800 mg Documented by: Glucagon (Glucagen) 1 mg IM ASDIRECTED PRN PRN Reason: Hypoglycemia Insulin Human Lispro (Humalog) 0 unit SUBCUT TIDMEALS [facility]; Protocol Last Admin: 08/21/20 18:03 Dose: Not Given Documented by: Savella 50 MgOwn (Med) 50 mg PO BID [facility] Last Admin: 08/22/20 07:50 Dose: 50 mg Documented by: Nortriptyline HCl (Nortriptyline) 10 mg PO BEDTIME [facility] Last Admin: 08/21/20 19:59 Dose: 10 mg Documented by: Omeprazole (Omeprazole) 40 mg PO DAILY@0700 [facility] Last Admin: 08/22/20 06:58 Dose: 40 mg Documented by: Discontinued Medications Gabapentin (Neurontin) 800 mg PO BEDTIME [facility] Last Admin: 08/20/20 20:48 Dose: 800 mg Documented by: Sodium Chloride (Normal Saline) 1,000 mls @ 100 mls/hr IV ASDIRECTED [facility] Last Admin: 08/21/20 06:11 Dose: 100 mls/hr Documented by: - Exam General: Reports: Alert, Oriented, Cooperative, No Acute Distress HEENT: Reports: Mucous Membr. Moist/[employer] Neck: Reports: Supple, Trachea Midline, No Thyromegaly. Denies: Lymphadenopathy Lungs: Reports: Clear to Auscultation, Normal Respiratory Effort Cardiovascular: Reports: Regular Rate, Regular Rhythm, No Murmurs GI/Abdominal Exam: Normal Bowel Sounds, Soft, Non-Tender, No Organomegaly, No Distention, No Mass Extremities: Normal Inspection, Non-Tender, No Pedal Edema, Normal Capillary Refill Skin: Reports: Warm, Dry, Intact Neurological: Reports: No New Focal Deficit *Q Meaningful Use (DIS) - VTE *Q VTE Anticoagulation Contraindications: Med/TX Not Indicated/Need
[2020-08-22] MEDS: Insulin Lispro 100 Units/ML 3 ML Vial SUBCUT SCH (09:36)
[2020-08-22 10:17] VITALS: BP 109/61; PULSE 86
== END 2020-08-22 12:45 | disposition home or self-care (01) | DRG 812 ==
LOC: EDSTATUS 17:40 → VM.MS 17:43
PROVIDERS: ADMIT Physician Assistant; ATTEND Family Medicine
DX: D64.9 Anemia, unspecified (principal); N17.9 Acute kidney failure, unspecified; M54.9 Dorsalgia, unspecified; G89.29 Other chronic pain; E11.9 Type 2 diabetes mellitus without complications; Z79.4 Long term (current) use of insulin; I10 Essential (primary) hypertension; M79.7 Fibromyalgia; K21.9 Gastro-esophageal reflux disease without esophagitis; G47.01 Insomnia due to medical condition; G47.33 Obstructive sleep apnea (adult) (pediatric); N52.9 Male erectile dysfunction, unspecified; Z87.442 Personal history of urinary calculi; E78.5 Hyperlipidemia, unspecified; Z90.49 Acquired absence of other specified parts of digestive tract; T39.395A Adverse effect of other nonsteroidal anti-inflammatory drugs [NSAID], initial encounter; Y92.89 Other specified places as the place of occurrence of the external cause; Z20.822 Contact with and (suspected) exposure to COVID-19
CPT/HCPCS: 36415; 80048; 82607; 82728; 82746; 82962; 83540; 83550; 85025; A9270-GY; J1815-GY; J7030; U0002

== ENCOUNTER 2021-10-23 17:06 | Emergency (ER) | payer MEDICARE ==
[2021-10-23] MEDS ORDERED: Ketorolac 30 MG/ML SDV IVPUSH ONE (17:35)
[2021-10-23] MEDS ORDERED: Sodium Chloride 0.9% 1,000 ML IV ONE (17:36)
[2021-10-23 18:01] LABS: CHLORIDE,CL 101 mmol/L (98-107); SODIUM,NA 140 mmol/L (136-145)
[2021-10-23] MEDS ORDERED: Tamsulosin 0.4 MG Cap.ER PO SCH (18:54)
[2021-10-23] MEDS ORDERED: Take Home: Acetaminophen/oxyCODONE 325-5 MG, 5 Tab Pack PO ONE (18:55)
[2021-10-23 19:51] VITALS: PULSE 73
[2021-10-23 19:55] VITALS: BP 106/71
== END 2021-10-23 19:15 | disposition home or self-care (01) ==
LOC: VM.ED 17:06
DX: N23 Unspecified renal colic (principal); E78.00 Pure hypercholesterolemia, unspecified; I10 Essential (primary) hypertension; E11.9 Type 2 diabetes mellitus without complications; Z91.011 Allergy to milk products; Z88.8 Allergy status to other drugs, medicaments and biological substances; Z79.82 Long term (current) use of aspirin; Z79.899 Other long term (current) drug therapy; Z87.442 Personal history of urinary calculi
CPT/HCPCS: 74176; 80053; 81001; 85025; 86140; 96374; 99284; 99284-25; A9270-GY; J1885; J7030

== ENCOUNTER 2022-06-09 12:03 | Emergency (ER) | payer MEDICARE ==
[2022-06-09 13:21] LABS: CHLORIDE,CL 105 mmol/L (98-107); SODIUM,NA 141 mmol/L (136-145)
[2022-06-09 13:30] LABS: ANION GAP 14.7 mmol/L (5-15); ESTIMATED GFR 52 mL/min (>=60)
[2022-06-09] MEDS ORDERED: Sodium Chloride 0.9% 1,000 ML IV ONE (14:11)
[2022-06-09 14:42] VITALS: BP 106/76; PULSE 74
== END 2022-06-09 14:47 | disposition home or self-care (01) ==
LOC: VM.ED 12:03
DX: E86.0 Dehydration (principal); I95.9 Hypotension, unspecified; E78.00 Pure hypercholesterolemia, unspecified; I10 Essential (primary) hypertension; K21.9 Gastro-esophageal reflux disease without esophagitis; E11.9 Type 2 diabetes mellitus without complications; Z91.011 Allergy to milk products; Z88.6 Allergy status to analgesic agent; Z79.82 Long term (current) use of aspirin; Z79.84 Long term (current) use of oral hypoglycemic drugs; Z79.899 Other long term (current) drug therapy
CPT/HCPCS: 36415; 70450; 71046; 80053; 81003; 82550; 82947; 83615; 84484; 85025; 86140; 93005; 93010; 99284; J7030

== ENCOUNTER 2022-11-12 19:03 | Emergency (ER) | payer MEDICARE ==
[2022-11-12] MEDS: Take Home: Clindamycin HCl 150 MG Cap, 6 Cap Pack PO ONE (19:44)
[2022-11-12 20:02] VITALS: BP 118/90; PULSE 102
== END 2022-11-12 19:48 | disposition home or self-care (01) ==
LOC: VM.ED 19:03
DX: K04.7 Periapical abscess without sinus (principal); E78.00 Pure hypercholesterolemia, unspecified; I10 Essential (primary) hypertension; E11.9 Type 2 diabetes mellitus without complications; K21.9 Gastro-esophageal reflux disease without esophagitis; Z79.899 Other long term (current) drug therapy; Z91.011 Allergy to milk products; Z88.8 Allergy status to other drugs, medicaments and biological substances; Z79.82 Long term (current) use of aspirin; Z79.84 Long term (current) use of oral hypoglycemic drugs
CPT/HCPCS: 99282; 99283; A9270

== ENCOUNTER 2024-08-20 01:50 | Emergency (ER) | payer MEDICARE ==
[2024-08-20] MEDS: LORazepam 2 MG/ML SDV IVPUSH ONE (02:34)
[2024-08-20] MEDS: Morphine 4 MG/ML Syringe IVPUSH ONE (02:35)
[2024-08-20] MEDS: Take Home: Acetaminophen/oxyCODONE 325-5 MG, 5 Tab Pack PO ONE (03:17)
[2024-08-20 04:53] VITALS: BP 150/101; PULSE 101
== END 2024-08-20 03:25 | disposition home or self-care (01) ==
LOC: VM.ED 01:50
DX: M25.562 Pain in left knee (principal); I10 Essential (primary) hypertension; E78.00 Pure hypercholesterolemia, unspecified; K21.9 Gastro-esophageal reflux disease without esophagitis; E11.9 Type 2 diabetes mellitus without complications; Z90.49 Acquired absence of other specified parts of digestive tract; Z88.8 Allergy status to other drugs, medicaments and biological substances; Z79.82 Long term (current) use of aspirin; Z79.84 Long term (current) use of oral hypoglycemic drugs; Z79.899 Other long term (current) drug therapy
CPT/HCPCS: 73560-LT; 96374; 96375; 99283; 99283-25; A9270-GY; J2060; J2270